=== PATIENT | male | born 1950 | race Caucasian/White ===

== ENCOUNTER 2019-05-07 12:04 | Emergency (ER) | payer MEDICARE ==
[~2019-05-07] VITALS: Ht 182.9 cm; Wt 112.5 kg
--- NOTE | 2019-05-07 12:15 | NUR ---
68 year old male ambulates to Room 5 c/o pain in right middle finger after being hit by golf ball.
--- NOTE | 2019-05-07 12:40 | DIREP ---
PROCEDURE:XRAY FINGER-RT COMPARISON:None. INDICATIONS:GOLF BALL STRIKE FINDINGS: BONES:Three views of the right middle finger. Mild soft tissue swelling seen. No fracture or foreign bodies identified. JOINTS:Normal. SOFT TISSUES:Normal. OTHER:No additional findings. CONCLUSION:Soft tissue swelling seen in the right middle finger. No fracture is seen. Dictated by: Shaun Wong MD on 05/07/2019 at 12:39 PM
[2019-05-07 12:59] VITALS: BP 128/72
--- NOTE | 2019-05-07 13:02 | ER.PDOC ---
General Chief Complaint: Extremities Stated Complaint: HAND INJURY Time seen by MD: 13:00 Source: patient Exam Limitations: no limitations History of Present Illness Occurred: just prior to arrival Where: park Severity: moderate Context: direct blow Location of Injury: (R) fingers Modifying Factors: pain on movement Past Medical History Medical History: no pertinent history Surgical History: no surgical history Social History Smoking: non-smoker Alcohol Use: none Drug Use: none Reviewed Nursing Reviewed: Vital Signs, Abn. Noted Review of Systems All Other Systems: Reviewed and Negative Physical Exam General Appearance: Alert, No Apparent Distress Hand: see diagram, tenderness 1 - TENDER 1 - TENDER Neuro: sensation nml, motor nml Vascular: no vascular compromise Tendons: tendon function nml Forearm/Elbow/Arm: uninjured above wrist Skin: warm/dry Head/ENT: nml inspection, pharynx nml Neck/Back: nml inspection, non-tender Resp/CVS: no resp distress, lungs clear, heart sounds nml, reg. rate & rhythm Abdomen: non-tender, no organomegaly Results/Orders Results/Orders Orders - SAYDA WYNNE MD Xr Finger Rt (05/07/19 12:24) Vital Signs Date Time Temp Pulse Resp B/P (MAP) Pulse Ox O2 Delivery O2 Flow Rate FiO2 05/07/19 12:25 80 16 97 Room Air 05/07/19 12:19 98.2 80 16 Room Air Departure Time of Disposition: 13:33 Disposition: 01 HOME, SELF-CARE Impression: Primary Impression: Finger contusion Condition: Stable Duration or Time Spent with Pa: 20 M SAYDA WYNNE MD May 07, 2019 13:02
--- NOTE | 2019-05-07 13:07 | NUR ---
Right middle finger sherlyn taped to right index for stabilization.
== END 2019-05-07 13:10 | disposition home or self-care (01) ==
LOC: ER 12:04
DX: S60.031A Contusion of right middle finger without damage to nail, initial encounter (principal); W21.04XA Struck by golf ball, initial encounter; Y93.53 Activity, golf; Y92.830 Public park as the place of occurrence of the external cause; Y99.8 Other external cause status
CPT/HCPCS: 99284; 73140-RT